=== PATIENT | male | born 1990 | race Two or more races ===

== ENCOUNTER 2024-08-20 11:12 | Outpatient (AMB) | payer BC, SELFPAY ==
--- NOTE | 2024-08-20 11:14 | MHC.PC.OV ---
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 He relocated to [facility] from [place] in 2007. Prior PCP? - He has never established with a PCP Last office visit/CPE/labs - Acute issue(s) - Reports sharp pain to his right heel especially while running while playing softball. His symptoms have been ongoing for the past one year. He denies fall, injury, or trauma. No acute symptoms at this time. - Reports intermittent sharp and burning pain to his right bicep while playing ball or shovelling. His symptoms have been ongoing for several years. He denies fall, injury, or trauma. No acute symptoms at this time. - He has been experiencing intermittent heartburn especially at night for over a year. - He requests vasectomy. Past Medical History - Acid reflux, hernia at childhood (? right lower abdomen) Surgical History - ? abdominal hernia repair Family History - Dad: Esophageal cancer Social History - Nonsmoker. Does not vape. Drinks 4-5 beers 2-3 days weekly. Denies recreational drug use - Has been making healthy dietary choices. Active but does not exercise. Generally sleep well Health maintenance - Last eye exam was 1 year ago with [facility] at the [facility]. He will follow up with [facility] for an updated eye exam and will sign a release for his PCP to obtain his ophthalmology record - Last dental visit was 3 weeks ago - Last tetanus vaccine was in in 2017/2017 at [facility] - Has not been vaccinated for the flu this season; declines vaccination [facility] Medical History (Updated 08/20/24 @ 12:[address] CNP) Hernia Acid reflux Family History (Updated 08/20/24 @ 11:26 by Elly Law MA) Family/Other No problems noted. 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 1. Little interest or pleasure in doing things: not at all 2. Feeling down, depressed, or hopeless: not at all 3. Trouble falling or staying asleep, or sleeping too much: not at all 4. Feeling tired or having little energy: not at all 5. Poor appetite or overeating: not at all 6. Feeling bad about yourself - or that you are a failure or have let yourself or your family down: not at all 7. Trouble concentrating on things, such as reading the newspaper or watching television: not at all 8. Moving or speaking so slowly that other people could have noticed. Or the opposite - being so fidgety or restless that you have been moving around a lot more than usual: not at all 9. Thoughts that you would be better off or of hurting yourself in some way: not at all Total score: 0 Depression Screening Interpretation: Negative Depression Screening Done: Yes 54301 - PHQ-9 Billing: Yes Source: Developed by Drs. Houston Marina, Anna Dela Cruz, Montez Marquez and colleagues, with an educational ezio from [employer]. Thrive Questionnaire Date Thrive assessed: 08/20/24 I am a: Patient What is your living situation today?: I have a steady place to live Within the past 12 months, did the food you bought not last and you didn't have the money to get more?: Never true Within the past 12 months, did you worry whether your food would run out before you got money to buy more?: Never true Do you have trouble paying for medicines?: No Do you have trouble getting transportation to medical appointments?: No Do you have trouble paying your heating and electricity bill?: No Do you have trouble taking care of your child, family member or friend?: No Do you have trouble with day-to-day activities such as bathing, preparing meals, shopping, managing finances, etc.?: No Are you currently unemployed and looking for a job?: No Are you interested in more education?: No Please select the resources that you would like help with: None Currently or been in a relationship where the following occur: No concerns reported THRIVE Score: 0 AUDIT C Alcohol Use Questionnaire (AUDIT-C) 1. How often do you have a drink containing alcohol?: 2-3 times a week 2. How many drinks containing alcohol do you have on a typical day when you are drinking?: 10 or more 3. How often do you have six or more drinks on one occasion?: Weekly Total Score: 10 Score Reviewed/Action Taken: Yes MALCOM-7 AMB Questionnaire MALCOM-7 Date MALCOM - 7 assessed: 08/20/24 Feeling nervous, anxious, or on edge: 1 = Several days Not being able to stop or control worryin = Not at all Worrying too much about different things: 0 = Not at all Trouble relaxin = Not at all Being so restless that it is hard to sit still: 0 = Not at all Becoming easily annoyed or irritable: 2 = More than half the days Feeling afraid as if something awful might happen: 0 = Not at all Total MALCOM-7 score (0-4 normal; 5-9 mild; 10-14 moderate; 15-21 severe): 3 Source: Developed by Drs. Houston Marina, Anna Dela Cruz, Montez Marquez and colleagues, with an educational ezio from [employer]. MALCOM-7 Assessment Billing MALCOM-7 Assessment Tool: MALCOM-7 Assessment 13657 Review of Systems Const Details: Denies chills, Denies fatigue, Denies fever(s), Denies headache(s) and Denies weakness HEENT Denies change in vision, Denies dizziness, Denies headache(s), Denies hearing loss, Denies nasal congestion, Denies sinus pain, Denies sinus pressure and Denies sore throat Card Denies chest pain, Denies lightheadedness, Denies dyspnea and Denies other (palpitations) Resp Denies cough, Denies dyspnea and Denies wheezing GI Denies abdominal pain, Denies melena, Denies hematochezia, Denies change in bowel habits, Denies dyspepsia and Denies nausea Denies hematuria and Denies dysuria Musc Denies abnormal gait, Denies myalgias, Denies arthralgias, Denies numbness and Denies tingling Skin/Breast Denies rash, Denies unusual bruising and Denies wounds Neuro Denies abnormal gait, Denies dizziness, Denies headache(s), Denies memory loss, Denies numbness, Denies Sensory deficit (Neuro), Denies tingling and Denies weakness Psych Denies anxiety, Denies depression and Denies memory loss Endo Denies cold intolerance, Denies fatigue, Denies heat intolerance, Denies polydipsia and Denies polyuria Edy/Lymph Denies easy bleeding and Denies easy bruising Aller/Immun Denies wheezing Physical exam (Primary Care) Depression Screening Interpretation: Negative Thrive Assessment: Date of Thrive Assessment Date Thrive assessed 08/17/24 08/16/24 21:27 Currently or been in a relationship where the following occur: No concerns reported Const Other: General: no acute distress, well developed, alert and awake Nutritional Appearance: well nourished Orientation/consciousness: patient oriented x3 HENMT Head: Yes normocephalic and Yes atraumatic Ears: hearing grossly normal bilaterally and TM's normal bilaterally General nose exam: Normal external nose present and Normal nares present Mouth: Normal oral and palatal mucosa present and moist mucous membranes Teeth and gingiva: dentition normal Throat: Yes oropharynx normal Eyes Pupils: Equal, round and reactive pupils present and Pupil accommodation reflex normal EOM: EOMs intact bilaterally Neck Neck: Yes normal visual inspection, Yes no lymphadenopathy and Yes trachea midline Thyroid: Thyroid normal Carotids: no bruits Lymphatic: no lymphadenopathy noted Chest Chest palpation & inspection: normal inspection of the chest Resp Effort & Inspection: normal respiratory effort Auscultation: clear to auscultation bilaterally Cardio Rate: regular rate Rhythm: regular rhythm Heart sounds: S1 normal heart sound present, S2 normal heart sound present, no gallops, no murmurs and no rubs Bruits: no abdominal aortic bruits and no carotid bruits GI Palpation (GI): No Abdominal aortic bruit present, Soft to palpation, nontender, No hepatosplenomegaly present and No Rebound tenderness present Auscultation: normal bowel sounds General: Yes no CVA tenderness Back/Spine/Pelvis Back: no CVA tenderness Cervical Spine: cervical ROM normal and No Cervical spine tenderness Thoracic/Lumbar Spine: thoraco-lumbar ROM normal, No pain with thoraco-lumbar ROM, No thoracic spinal tenderness and No lumbar spinal tenderness Skin General: warm and dry. Normal skin color. Normal skin turgor Lesions: no lesions Rashes: no rashes Trauma: no lacerations or abrasions Wounds: no wounds Nails: normal Neuro General: patient oriented x3, gait normal and CN's II-XI intact bilaterally Cranial nerves: Yes Equal, round and reactive pupils present Cognition (Neuro): normal cognition Gait exam (Neuro): Normal gait present Motor exam (neuro): 5/5 motor strength present throughout Sensory Exam: No Sensory deficit (Neuro) Deep tendon reflexes (DTR's): Right patellar reflex intensity grade: 2+ and Left patellar reflex intensity grade: 2+ Extrem General: Yes normal to inspection, No edema and No calf tenderness Psych Appearance: grossly normal Affect: normal affect Attitude: cooperative Thought process: Normal thought process present Coding Level of Care Code New Pt Level 4 (20264) New Pt Prev Care 18-39yr(65305 Diagnoses Normal physical examination, routine Z00.00 Pain of right heel M79.671 Acid reflux K21.9 Strain of right biceps S46.211A Alcohol use disorder F10.90 Vasectomy evaluation Z30.09 Laboratory tests ordered as part of a complete physical exam (CPE) Z00.00 Additional Codes MALCOM-7 Assessment Billing - MALCOM-7 Assessment Tool: MALCOM-7 Assessment 84170 ([id number]) PHQ-9 - 83205 - PHQ-9 Billing: Yes ([id number]) Assessment & Plan Assessment & Plan (1) Normal physical examination, routine: Code(s): Z00.00 - Encounter for general adult medical examination without abnormal findings Category: Medical Plan: No significant functional limitation noted. Healthy diet and routine exercise encouraged. Perform lab work and imaging and follow-up for a telehealth visit in 2-3 weeks for review. Return sooner with symptoms or concerns. Verbalized understanding and agreed with treatment plan. (2) Pain of right heel: Code(s): M79.671 - Pain in right foot Category: Medical Plan: He has been experiencing sharp pain to his right heel especially while running while playing softball. His symptoms have been ongoing for the past one year. He denies fall, injury, or trauma. No acute symptoms at this time. Likely bone spur. Advised to wear sneakers with good support while running or playing sports. May take Tylenol ibuprofen for pain or discomfort. X-ray ordered. Follow-up in 2 weeks for imaging review. Return with worsening or new symptoms. Verbalized understanding and agreed with treatment plan. (3) Acid reflux: Code(s): K21.9 - Gastro-esophageal reflux disease without esophagitis Category: Medical Plan: He has been experiencing intermittent heartburn especially at night for over a year. Healthy diet, including avoiding fatty or greasy foods encouraged. Advised to limit or avoid alcohol intake. Omeprazole 20 mg daily ordered; advised to take as prescribed. Instructed on the risks, benefits, and potential adverse reactions of the medication. Follow-up with worsening or new symptoms. Verbalized understanding and agreed with the treatment plan (4) Strain of right biceps: Code(s): S46.211A - Strain of muscle, fascia and tendon of other parts of biceps, right arm, initial encounter Category: Medical Plan: He has been experiencing intermittent sharp and burning pain to his right bicep while playing softball or shovelling. His symptoms have been ongoing for several years. He denies fall, injury, or trauma. No acute symptoms at this time. Encouraged to limit or avoid sports or repeated usage of the right arm when experiencing symptoms. Warm/cool compresses encouraged. May take Tylenol ibuprofen as needed. Verbalized understanding and agreed with the plan. (5) Alcohol use disorder: Code(s): F10.90 - Alcohol use, unspecified, uncomplicated Category: Medical Plan: He drinks 4-5 beers 2-3 days weekly. Instructed on the health risks complications of excessive alcohol intake and encouraged to limit no avoid drinking alcohol. Advised to drink no more than 7 drinks weekly. May referred to [facility] comprehensive care for alcohol treatment as needed. Verbalized understanding and agreed with the plan. (6) Vasectomy evaluation: Code(s): Z30.09 - Encounter for other general counseling and advice on contraception Category: Medical Plan: Referred to [facility] urology. (7) Laboratory tests ordered as part of a complete physical exam (CPE): Code(s): Z00.00 - Encounter for general adult medical examination without abnormal findings Category: Medical Plan: Fasting labs ordered as part of a complete physical exam. Advised to fast for at least 10 hours before getting labs drawn. May drink water Verbalized understanding and agreed with treatment plan. Orders: Orders Complete Blood Count Auto Diff Today Z00.00 - Encounter for general adult medical examination without abnormal findings Comprehensive [place]. Panel Fast Today Z00.00 - Encounter for general adult medical examination without abnormal findings Microalbumin, Random (w Creat) Today Z00.00 - Encounter for general adult medical examination without abnormal findings Vitamin D 25-OH Total Today Z00.00 - Encounter for general adult medical examination without abnormal findings Lipid Panel Today Z00.00 - Encounter for general adult medical examination without abnormal findings TSH reflex Free T4 Today Z00.00 - Encounter for general adult medical examination without abnormal findings UA CC w/rflx Micro + Cult Today Z00.00 - Encounter for general adult medical examination without abnormal findings XR foot RT 2V Today M79.671 - Pain in right foot Referrals Urology Referral Z30.09 - Encounter for other general counseling and advice on contraception Medications: New omeprazole 20 mg PO DAILY 20 days 20 caps 3RF
[2024-08-20 11:19] VITALS: BP 135/75; PULSE 96; RESP 16; TEMP 36.5; O2SAT 95; BMI 26.6
== END 2024-08-20 11:58 | disposition home or self-care (01) ==
LOC: HO.HMCFM 11:12
PROVIDERS: PCP Nurse Practitioner Family; Visit Provider Nurse Practitioner Family
DX: Z00.00 Encounter for general adult medical examination without abnormal findings (principal); M79.671 Pain in right foot; K21.9 Gastro-esophageal reflux disease without esophagitis; S46.211A Strain of muscle, fascia and tendon of other parts of biceps, right arm, initial encounter; F10.90 Alcohol use, unspecified, uncomplicated

== ENCOUNTER → 2024-08-20 11:12 | Outpatient (BNVA) | payer BC, SELFPAY | PROVIDERS: PCP Nurse Practitioner Family; Visit Provider Nurse Practitioner Family | DX: Z00.00 Encounter for general adult medical examination without abnormal findings (principal); M79.671 Pain in right foot; K21.9 Gastro-esophageal reflux disease without esophagitis; S46.211A Strain of muscle, fascia and tendon of other parts of biceps, right arm, initial encounter; F10.90 Alcohol use, unspecified, uncomplicated; X58.XXXA Exposure to other specified factors, initial encounter; Y93.9 Activity, unspecified; Y92.9 Unspecified place or not applicable; Y99.9 Unspecified external cause status | CPT/HCPCS: 96127 ==

== ENCOUNTER 2024-09-23 06:23 | Outpatient (REF) | payer BC, SELFPAY ==
--- NOTE | ~2024-09-23 | XR_ITS ---
CLINICAL HISTORY: M79.671 - Pain in right foot 3 view right foot Comparison: None Findings: No fractures or dislocations. Mild degenerative change of the 1st metatarsophalangeal joint No ankle effusion. No radiopaque foreign body. IMPRESSION: 1. No acute findings. 2. Mild degenerative change This document has been electronically signed by: Dorian Oakes MD on 09/23/2024 07:21:34
--- OUTSIDE RECORDS SUMMARY | 2024-09-23 06:25 | XMS_ITS | Clinical Summary ---
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 Name Role Phone Unavailable Primary Care Provider Unavailabl e Surgical History Surgery Date Site/Laterality Comments HERNIA REPAIR Right PROCEDURE: HISTORICAL HERNIA REPAIR/ING Medical History Medical History Date Comments Borderline hypercholesterolemia 08/25/2018 DX:Borderline hypercholesterolemia Family History Medical History Relation Name Comments No Known Problems Brother Cancer of Small Bowel Father thinks prostate ca No Known Problems Maternal Grandfather No Known Problems Maternal Grandmother No Known Problems Mother No Known Problems Paternal Grandfather No Known Problems Paternal Grandmother No Known Problems Sister 1 No Known Problems Sister 2 Relation Name Status Comments Brother Alive Father Maternal Grandfather Alive Maternal Grandmother Alive Mother Alive Paternal Grandfather Alive Paternal Grandmother Alive Sister 1 Alive Sister 2 Alive Social History Tobacco Use Types Packs/Day Years Used Date Smoking Tobacco: Never Smokeless Tobacco: Never Alcohol Use Standard Drinks/Week Comments Yes 0 (1 standard drink = 0.6 oz pur e alcohol) Sex and Gender Information Value Date Recorded Sex Assigned at Not on file Legal Sex Male 1:57 PM EST Gender Identity Not on file Sexual Orientation Not on file Obstetrics History Plan of Treatment Health Maintenance Due Date Last Done Comments DTaP,Tdap,and Td Vaccines (1 - Tdap) 2008 Hepatitis B Vaccines (1 of 3 - 19+ 3-dose series) 2008 COVID-19 Vaccine (2023-2 5 season) 2024 Cholesterol Screening (Lipid Panel) 04/25/2024 Depression Screening 04/25/2024 HIV Screening 04/25/2024 Hepatitis C Screening 04/25/2024 Social Influencers of Health Screening 04/25/2024 Influenza Vaccine (Season Ended) 2025 HIB Vaccines Aged Out No longer eligi ble based on patient's age to complete this topic HPV Vaccines Aged Out No longer eligi ble based on patient's age to complete this topic Hepatitis A Vaccines Aged Out No long er eligible based on patient's age to complete this topic IPV Vaccines Aged Out No longer eligi ble based on patient's age to complete this topic MMR Vaccines Aged Out No longer eligi ble based on patient's age to complete this topic Meningococcal ACWY Vaccine Aged Out N o longer eligible based on patient's age to complete this topic Meningococcal B Vaccine Aged Out No l onger eligible based on patient's age to complete this topic Pneumococcal Vaccine: Pediat rics (0 to 5 Years) and At-Risk Patients (6 to 64 Years) Aged Out No longer eligible b ased on patient's age to complete this topic RSV Immunization Patients Un dora 20 months Aged Out No longer eligible b ased on patient's age to complete this topic Varicella Vaccines Aged Out No longer eligible based on patient's age to complete this topic
[2024-09-23 06:38] LABS: MANUAL DIFF FLAG NO
[2024-09-23 07:21] LABS: Appearance Urine Clear; Color Urine Yellow; Glucose Urine UA Negative (Negative); Leukocyte Esterase Urine Negative (Negative); Nitrite Urine Negative (Negative); PH 5.5 (5.0-9.0); Specific Gravity - Urine 1.025 (1.005-1.025); Urine Blood Negative (Negative); Urine Ketones Trace mg/dL (Negative); Urine Protein Negative (Neg-Trace)
[2024-09-23 07:25] LABS: Basophils Absolute Auto 0.1 X10*3/uL (0.0-0.2); Eosinophils Absolute Auto 0.2 X10*3/uL (0.0-0.4); Eosinophils Percent Auto 3.1 % (0-4); Hematocrit 42.7 % (42.0-52.0); Hemoglobin 14.7 g/dl (14.0-18.0); Imm Gran Abs Auto 0.04 X10*3/uL (0.00-0.03); Imm Gran Pct Auto 0.8 % (0.0-0.4); Lymphocytes Absolute Auto 2.4 X10*3/uL (1.2-4.9); Lymphocytes Percent Auto 48.9 % (20-40); Mean Corpuscular HGB Conc 34.4 g/dl (31.0-36.0); Mean Corpuscular Hemoglobin 31.3 pg (27.0-33.0); Mean Corpuscular Volume 90.9 fL (80.0-98.0); Mean Platelet Volume 9.3 fL (9.4-12.4); Monocytes Absolute Auto 0.7 X10*3/uL (0.1-1.2); Monocytes Percent Auto 13.5 % (2-11); Neutrophils Absolute Auto 1.6 x10*3/uL (2.0-8.3); Neutrophils Percent Auto 32.7 % (45-73); Platelet Count 242 X10*3/uL (160-400); Red Cell Distribution Width 12.2 % (11.0-16.0); White Blood Count 4.8 X10*3/uL (4.8-10.8)
[2024-09-23 07:37] LABS: Creatinine Urine 266.82 mg/dL; Microalbum/Creatinine Ratio Ur 4.8 ug/mg cr (<30)
[2024-09-23 07:50] LABS: Alanine Aminotransferase 62 U/L (0-40); Albumin Level 4.2 g/dL (3.5-5.0); Alkaline Phosphatase 66 U/L (39-117); Anion Gap 12 (12-20); Aspartate Amino Transferase 33 U/L (5-37); Bilirubin Total 0.5 mg/dL (0.0-1.0); Blood Urea Nitrogen 12 mg/dL (9-16); Calcium 8.9 mg/dL (8.4-10.2); Carbon Dioxide 26 mmol/L (22-29); Chloride 105 mmol/L (96-108); Cholesterol 254 mg/dL (<200); Estimated Glomerular Filt Rate > 60; Glucose Fasting 90 mg/dL (60-99); HDL Cholesterol 66 mg/dL (>40); LDL Cholesterol Calculated 158 mg/dL (<100); Potassium 4.1 mmol/L (3.3-5.1); Sodium 139 mmol/L (135-145); Total Protein 7.4 g/dL (6.5-8.0); Triglycerides 154 mg/dL (<150)
[2024-09-23 08:08] LABS: TSH reflex Free T4 0.94 uIU/mL (0.32-4.0); Vitamin D 25-OH Total 16.1 ng/mL (>30)
== END 2024-09-23 06:24 | disposition home or self-care (01) ==
LOC: HO.XRAY 06:23
PROVIDERS: PCP Nurse Practitioner Family; Visit Provider Nurse Practitioner Family
DX: M79.671 Pain in right foot (principal); Z13.6 Encounter for screening for cardiovascular disorders; Z00.00 Encounter for general adult medical examination without abnormal findings
CPT/HCPCS: 36415; 73620; 80053; 80061; 81003; 82043; 82306; 82570; 84443; 85025

== ENCOUNTER → 2024-09-23 06:54 | Outpatient (BNV) | payer BC, SELFPAY | PROVIDERS: PCP Nurse Practitioner Family; Visit Provider Radiology Vascular & Interventional Radiology | DX: M79.671 Pain in right foot (principal) | CPT/HCPCS: 73620 ==

== ENCOUNTER 2024-09-28 15:29 | Outpatient (AMB) | payer BC, SELFPAY ==
--- NOTE | 2024-09-28 14:10 | A.OFFPC_ITS ---
Intake Visit Reasons: Telehealth 2-3 wks labs/imaging review Intake Note: patient here for telehealth follow up for labs and imaging review. 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 No acute symptoms at this time. [facility] Medical History (Updated 09/28/24 @ 16:[address] CNP) Hernia Acid reflux Family History (Updated 08/20/24 @ 11:26 by Elly Law MA) Family/Other No problems noted. 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 Houston Marina, Anna Dela Cruz, Montez Marquez and colleagues, with an educational ezio from [employer]. Review of Systems Const Details: Denies chills, Denies fatigue, Denies fever(s), Denies headache(s) and Denies weakness Cardiac Denies chest pain, Denies claudication, Denies leg edema, Denies lightheadedness, Denies palpitations, Denies dyspnea, Denies dyspnea on exertion, Denies orthopnea and Denies other (Loss of consciousness) Resp Denies cough, Denies excessive phlegm production, Denies dyspnea, Denies dyspnea on exertion, Denies snoring and Denies wheezing Physical exam (Primary Care) Tobacco/Smoking Status: Tobacco use Status Tobacco use date assessed 09/28/24 09/28/24 14:11 Patient Tobacco Use Status Never used Tobacco 09/28/24 14:11 e-Cigarette/Vaping Use Never Used 09/28/24 14:11 Thrive Assessment: Date of Thrive Assessment Date Thrive assessed 08/20/24 09/28/24 14:11 Const Other: Patient is alert and oriented x3. Telehealth Telehealth Telehealth Platform: Telephone Location of provider rendering services: practice address Location of patient: address on file Patient Identification confirmed using: Name, : Yes Telehealth method: voice only Patient verbally consented to treatment: Yes Patient verbally consented to billing insurance company: Yes Patient informed of any privacy concerns related to visit: Yes Coding Level of Care Code Tele Est Pt Level 3 (45539) Diagnoses Hyperlipidemia E78.5 Elevated ALT measurement R74.01 Vitamin D deficiency E55.9 Time Spent (min) 15 Assessment & Plan Assessment & Plan (1) Hyperlipidemia: Code(s): E78.5 - Hyperlipidemia, unspecified Category: Medical Plan: Recent triglycerides, total cholesterol, and LDL levels are elevated, 154, 254, and 158 respectively, HDL level was normal. Likely due to poor diet or excessive alcohol intake. He has history of drinking 4-5 beers 2-3 days weekly but notes that he has cut down and had 3-4 beers last week and none so far this week. Advised to limit foods high in saturated fat and avoid foods high in trans fat. Routine exercise encouraged. Advised to cut down or avoid alcohol intake. No more than 2 drinks daily or 5 drinks weekly. Fast for 10-12 hours, may drink water, and performed today panel blood work 2-3 days before next visit. Follow-up for telehealth visit in 2 months. Return sooner with symptoms or concerns. Verbalized understanding and agreed with treatment plan. (2) Elevated ALT measurement: Code(s): R74.01 - Elevation of levels of liver transaminase levels Category: Medical Plan: Recent ALT level is slightly elevated, 62. Likely related to diet or alcohol. Plan as above. Will recheck lipid panel in 2 months. Verbalized understanding and agreed with the plan. (3) Vitamin D deficiency: Code(s): E55.9 - Vitamin D deficiency, unspecified Category: Medical Plan: Recent vitamin-D level is low, 16.1. Vitamin D3 1000 units daily ordered; advised to take as prescribed. Informed that the sun is a good source of vitamin-D. Will recheck vitamin-D level in 2 months. Verbalized understanding and agreed with the plan. Orders: Orders Lipid Panel 2 Months E78.5 - Hyperlipidemia, unspecified Vitamin D 25-OH Total 2 Months E55.9 - Vitamin D deficiency, unspecified Liver Panel 2 Months R74.01 - Elevation of levels of liver transaminase levels Medications: New cholecalciferol (vitamin D3) 25 mcg PO DAILY 90 days 90 tabs 1RF
== END 2024-09-28 16:41 | disposition home or self-care (01) ==
LOC: HO.HMCFM 15:29
PROVIDERS: PCP Nurse Practitioner Family; Visit Provider Nurse Practitioner Family
DX: E78.5 Hyperlipidemia, unspecified (principal); R74.01 Elevation of levels of liver transaminase levels; E55.9 Vitamin D deficiency, unspecified

== ENCOUNTER → 2024-09-28 15:29 | Outpatient (BNVA) | payer BC, SELFPAY | PROVIDERS: PCP Nurse Practitioner Family; Visit Provider Nurse Practitioner Family | DX: E78.5 Hyperlipidemia, unspecified (principal); R74.01 Elevation of levels of liver transaminase levels; E55.9 Vitamin D deficiency, unspecified | CPT/HCPCS: 98967 ==

== ENCOUNTER → 2025-04-18 09:28 | Outpatient (BNVA) | payer OTHER, SELFPAY | PROVIDERS: PCP Nurse Practitioner Family; Visit Provider Emergency Medicine | DX: S39.012A Strain of muscle, fascia and tendon of lower back, initial encounter (principal); X50.1XXA Overexertion from prolonged static or awkward postures, initial encounter | CPT/HCPCS: 72100; 99203 ==

== ENCOUNTER → 2025-04-25 11:18 | Outpatient (BNVA) | payer OTHER, SELFPAY | PROVIDERS: PCP Nurse Practitioner Family; Visit Provider Emergency Medicine | DX: S39.012A Strain of muscle, fascia and tendon of lower back, initial encounter (principal); X50.1XXA Overexertion from prolonged static or awkward postures, initial encounter | CPT/HCPCS: 99214 ==

== ENCOUNTER → 2025-05-10 09:32 | Outpatient (BNVA) | payer OTHER, SELFPAY | PROVIDERS: Visit Provider Emergency Medicine | DX: S39.012D Strain of muscle, fascia and tendon of lower back, subsequent encounter (principal); X50.1XXD Overexertion from prolonged static or awkward postures, subsequent encounter | CPT/HCPCS: 99213 ==

== ENCOUNTER 2025-05-15 14:38 | Outpatient (REF) | payer OTHER, SELFPAY ==
--- NOTE | ~2025-05-15 | MR_ITS ---
CLINICAL HISTORY: Low back pain, work injury 11 12 . Exam: Nonenhanced MRI lumbar spine. Comparison: Lumbar radiographs dated 04/18/2025. Findings: Lumbar vertebral body heights and alignment are well-maintained. A sharply marginated peripherally T2 hyperintense and T1 hyperintense lesion within L2 vertebral body measuring up to 17 mm craniocaudad dimension (6; 10 and 5; 8) likely represents a hemangioma. Remaining signal intensities are well-maintained. There is disc desiccation disc space narrowing at L5-S1, and lesser disc desiccation at L4-5. Remaining intervertebral disc heights appear maintained. Conus medullaris terminates near L1-L2 level. Axial images reveal the following: L1-2: No focal disc herniation, spinal or foraminal compromise. L2-3: No focal disc herniation, spinal or foraminal compromise. L3-4: A central disc protrusion is present, measuring 11 mm transversely at its base and extending posteriorly approximately 4 mm (measured on 9; 29), with resultant very mild central canal stenoses and mild ventral impression upon the thecal sac (9; 29). No spinal stenoses. L4-5: Diffuse mild disc bulging is present. No significant spinal or foraminal stenoses. L5-S1: A fairly large central disc protrusion measuring 10 cm transversely at its base and extending posteriorly approximately 8 mm (9; 42, 10; 28 and 6; 18) is present. There is resultant ventral impression upon the thecal sac with some mild central canal stenoses. There is perhaps very mild bilateral foraminal stenoses as well. Impression: 1. Disc protrusions at L3-4 and L5-S1 with some mild central canal stenoses as described above. This document has been electronically signed by: Yasmany Noriega MD on 05/15/2025 15:44:00
--- OUTSIDE RECORDS SUMMARY | 2025-05-15 14:42 | XMS_ITS | Clinical Summary ---
Author Organization [facility] Prior to 04/02/[address] [place] [id number] Care Team Providers Care Photo Print Specialist Name Role Phone Community, Pcp Primary Care Provider Unavailabl e Allergies No known active allergies Medications No known medications Active Problems Problem Noted Date Borderline hypercholesterolemia 08/26/19 19 Family History Medical History Relation Name Comments [...] Date Smoking Tobacco: Never Smokeless Tobacco: Never Tobacco Cessation:Counseling Given: No Alcohol Use Standard Drinks/Week Comments Yes 0 (1 standard drink = 0.6 oz pur e alcohol) occasional Sex Assigned at Date Recorded Not on file Last Filed Vital Signs Vital Sign Reading Time Taken Comments Blood Pressure 132/72 08/25/2018 4:04 PM EDT Pulse 80 08/25/2018 4:04 PM EDT Temperature 37.4 C (99.3 F) 08/25/2018 4:04 PM EDT Respiratory Rate 16 08/25/2018 4:04 PM EDT Oxygen Saturation - - Inhaled Oxygen Concentration - - Weight 73.3 kg (161 lb 11.2 oz) 08/25/2018 4:04 PM EDT Height 170.2 cm (5' 7 ) 08/25/2018 4:04 PM EDT Body Mass Index 25.33 08/25/2018 4:04 PM EDT Plan of Treatment Health Maintenance Due Date Last Done Comments Covid-19 Vaccine (#1) 1989 CHOLESTEROL SCREENING 04/09/2023 04/09/2018 BASELINE HEALTH EXAM 18-39 08/26/2023 08/25/2018, BMI CHECK/ADVISE 06/02/2024 08/25/2018, , 08/25/2018, Additional history exists DEPRESSION SCREENING/FOLLOWUP 06/02/2024 08/25/2018 SOCIAL NEEDS SCREENING 06/02/2024 08/25/2018 INFLUENZA (#1) 2025 04/09/2018 (Refused) DTAP/TDAP/TD (2 - Td or Tdap) 03/15/2025 03/15/2015 (Completed) PNEUMOCOCCAL VACCINE FOR HIG H RISK PATIENTS (#1) 2054 Care Teams Photo Print Specialist Relationship Specialty Start Date End Date Community, Pcp PCP - General Internal Medicine 08/26/20
--- OUTSIDE RECORDS SUMMARY | 2025-05-15 14:42 | XMS_ITS | Encounter Summary ---
Author Organization [facility] [employer] [facility] Prior to 04/02/[address] [place] [id number] Care Team Providers Care Liaison Engineer Name Role Phone Seema Jennings MD Primary Care Provider Unavail able [facility], Pcp Primary Care Provider Unavailabl e Encounter Details Date Type Department Care Team Description 04/08/2018 Release of Information Medical Records [address] [place] [id number] Abstract, Provider Social History Tobacco Use Types Packs/Day Years Used Date Smoking Tobacco: Never Assessed Sex Assigned at Date Recorded Not on file documented as of this encounter Plan of Treatment Not on file documented as of this encounter Visit Diagnoses Not on filedocumented in this encounter Care Teams Liaison Engineer Relationship Specialty Start Date End Date Seema Jennings MD PCP - General Internal Medicine 04/06/18 08/25/18 [facility], Pcp PCP - General Internal Medicine 08/26/20 documented as of this encounter
--- OUTSIDE RECORDS SUMMARY | 2025-05-15 14:42 | XMS_ITS | Clinical Summary ---
Author Organization [facility] Address [address] [place] [address] Care Team Providers Care Network Systems Integrator Name Role Phone Unavailable Primary Care Provider [...] on file Sexual Orientation Not on file Plan of Treatment Health Maintenance Due Date Last Done Comments DTaP,Tdap,and Td Vaccines (1 - Tdap) 2008 Hepatitis B Vaccines (1 of 3 - 19+ 3-dose series) 2008 HPV Vaccines (1 - 3-dose SCD M series) 2016 Cholesterol Screening (Lipid Panel) 04/25/2024 HIV Screening 04/25/2024 Hepatitis C Screening 04/25/2024 Social Influencers of Health Screening 04/25/2024 Depression Screening 06/02/2024 COVID-19 Vaccine ( - 2024-2 6 season) 2025 Influenza Vaccine (#1) 2025 RSV Immunization Adult Patie nts (1 - 1-dose 75+ series) 2064 HIB Vaccines Aged Out No longer eligi [...] 5 Years) and At-Risk Patients (6 to 49 Years) Aged Out No longer eligible b ased on patient's age to complete this topic RSV Immunization Patients Un dora 20 months Aged Out No longer eligible b ased on patient's age to complete this topic Varicella Vaccines Aged Out No longer eligible based on patient's age to complete this topic
== END 2025-05-15 14:39 | disposition home or self-care (01) ==
LOC: HO.MRI 14:38
PROVIDERS: Visit Provider Emergency Medicine
DX: M54.50 Low back pain, unspecified (principal)
CPT/HCPCS: 72148

== ENCOUNTER → 2025-05-15 14:50 | Outpatient (BNV) | payer OTHER, SELFPAY | PROVIDERS: Visit Provider Radiology Diagnostic Radiology | DX: M48.061 Spinal stenosis, lumbar region without neurogenic claudication (principal) | CPT/HCPCS: 72148 ==

== ENCOUNTER → 2025-05-24 08:50 | Outpatient (BNVA) | payer OTHER, SELFPAY | PROVIDERS: Visit Provider Emergency Medicine | DX: M54.50 Low back pain, unspecified (principal) | CPT/HCPCS: 99213 ==